=== PATIENT | female | born 1995 | race Caucasian/White ===

== ENCOUNTER 2016-10-19 13:13 | Emergency (ER) | payer MEDICAID | END 2016-10-19 16:10 | disposition home or self-care (01) | LOC: D.ER 13:13 | DX: S00.03XA Contusion of scalp, initial encounter (principal); Y04.2XXA Assault by strike against or bumped into by another person, initial encounter; Y93.89 Activity, other specified; Y92.89 Other specified places as the place of occurrence of the external cause; S10.91XA Abrasion of unspecified part of neck, initial encounter; S62.511A Displaced fracture of proximal phalanx of right thumb, initial encounter for closed fracture ==

== ENCOUNTER 2019-04-04 10:36 | Emergency (ER) | payer OTHER, MEDICAID ==
[~2019-04-04] VITALS: Ht 165.1 cm; Wt 79.5 kg
[2019-04-04 10:45] VITALS: BP 151/89; Ht 165.1 cm; Wt 79.5 kg
[2019-04-04] MEDS ORDERED: VITAMIN D5000 UNIT PO (10:46)
[2019-04-04] MEDS ORDERED: BIRTH CONTROL (10:46)
== END 2019-04-04 12:14 | disposition left against medical advice (07) ==
LOC: D.ER 10:36
DX: M54.2 Cervicalgia (principal)